=== PATIENT | female | born 1975 | race Hispanic/Latino ===

== ENCOUNTER → 2020-02-25 | Outpatient (CLI) | payer BC | END | disposition home or self-care (01) | LOC: RAH 14:28 | PROVIDERS: ATTEND Registered Nurse Women's Health Care, Ambulatory | DX: Z12.31 Encounter for screening mammogram for malignant neoplasm of breast (principal); N64.89 Other specified disorders of breast | CPT/HCPCS: 77067 ==

== ENCOUNTER → 2020-03-14 | Outpatient (CLI) | payer BC | END | disposition home or self-care (01) | LOC: RAH 14:25 | PROVIDERS: ATTEND Registered Nurse Women's Health Care, Ambulatory | DX: N60.01 Solitary cyst of right breast (principal); N60.02 Solitary cyst of left breast; N63.25 Unspecified lump in the left breast, overlapping quadrants ==

== ENCOUNTER → 2020-09-11 | Outpatient (CLI) | payer BC | END | disposition home or self-care (01) | LOC: RAH 14:00 | PROVIDERS: ATTEND Obstetrics & Gynecology | DX: R92.2 Inconclusive mammogram (principal); N60.01 Solitary cyst of right breast; N60.02 Solitary cyst of left breast ==

== ENCOUNTER → 2022-03-08 | Outpatient (CLI) | payer BC ==
[~2022-03-08] MED LIST: LINA72CA PO; OMEP40CA21 PO
== END | disposition home or self-care (01) ==
LOC: RAH 11:08
PROVIDERS: ATTEND Obstetrics & Gynecology
DX: Z12.31 Encounter for screening mammogram for malignant neoplasm of breast (principal)
CPT/HCPCS: 77067

== ENCOUNTER → 2023-05-19 | Outpatient (CLI) | payer BC | END | disposition home or self-care (01) | LOC: RAH 15:13 | PROVIDERS: ATTEND Internal Medicine | DX: Z12.31 Encounter for screening mammogram for malignant neoplasm of breast (principal); R92.333 Mammographic heterogeneous density, bilateral breasts | CPT/HCPCS: 77067 ==